=== PATIENT | female | born 1960 | race Caucasian/White ===

== ENCOUNTER 2016-09-11 10:52 | Day surgery (SDC) | payer BC ==
[~2016-09-11 10:52] MED LIST: Buffered Lidocaine 0.9% SYRIN* 5 ML/SYR SYRINGE INTRADERM ONE; Buffered Lidocaine 0.9% SYRIN* 5 ML/SYR SYRINGE ONE; Famotidine IV* 10 MG/ML 2 ML (20 mg) IV ONE; Famotidine IV* 10 MG/ML 2 ML (20 mg) ONE
[2016-09-11] MEDS ORDERED: oxyCODONE TAB* 5 MG TAB PO PRN (12:50)
[2016-09-11] MEDS ORDERED: DiMENhydriNATE IV* 50 MG/ML VIAL IV PUSH PRN (12:50)
[2016-09-11] MEDS ORDERED: Acetaminophen TAB* 325 MG PO PRN (12:50)
[2016-09-11] MEDS ORDERED: fentaNYL* 50 MCG/ML 2 ML VIAL (100 MCG VIAL) ONE (13:50)
[2016-09-11] MEDS ORDERED: Midazolam* 1 MG/ML 5 ML VIAL (5 MG) ONE (13:51)
[2016-09-11] MEDS ORDERED: Propofol* 10 MG/ML 20 ML BTL IV PUSH ONE ×2 (13:51→15:17)
[2016-09-11] MEDS ORDERED: Ondansetron INJ* 2 MG/ML VIAL ONE (13:51)
[2016-09-11] MEDS ORDERED: Lidocaine 2% PF * 5 ML VIAL ONE (13:51)
[2016-09-11 16:32] VITALS: BP 111/64
--- NOTE | 2016-09-12 13:52 | PRO ---
CC: Dr. Cardenas * DATE OF PROCEDURE: 09/11/16 [facility] PROCEDURE: Colonoscopy. MEDICINES: IV propofol administered by Anesthesiology. NARRATIVE: Ms. Soria is a 56-year-old woman presenting for a followup colonoscopy. Approximately 5 to 6 years ago, she had a colonoscopy where a dysplastic polyp was removed. She is now here for followup and she is asymptomatic. She did have a very difficult colonoscopy previously that was painful. For that reason, this is being performed with IV propofol. DESCRIPTION OF PROCEDURE: The procedure was discussed with the patient. Risks and benefits were outlined and written consent was obtained. The patient was placed in the left lateral decubitus position and a rectal exam was performed. The rectal exam was normal without any palpable abnormality. At that point, a video adult flexible colonoscope was inserted anally and advanced to the distal sigmoid colon at which time, a sharp angulation was encountered which prevented further advancement of this instrument. This instrument, therefore, was removed and replaced with a pediatric colonoscope. This was successful at traversing the sigmoid colon and proceeding up into the cecum. The cecum was identified by the appendiceal orifice and the ileocecal valve. The terminal ileum was briefly intubated. The quality of the preparation was very good. The patient tolerated the procedure well and there were no immediate complications. FINDINGS: Colonoscopy into the distal terminal ileum was performed. The ileum was inspected for about 10 cm and was normal. The colon was thereafter very carefully inspected. Moderate sigmoid diverticulosis was noted. However, no other abnormality was detected, there was no evidence of polyp. The submucosal vascular pattern was normal. The rectum was viewed both in the forward view and retroflex manner and was normal. CONCLUSION: Sigmoid diverticulosis, otherwise normal colonoscopy into the terminal ileum. RECOMMENDATION: Given the patient's prior history of a dysplastic polyp, I would recommend a followup colonoscopy in 5 years. Thank you very much, Dr. Cardenas, for referring this kind woman to me. [id number]/[facility] #: [id number] [facility]
== END 2016-09-11 16:34 | disposition home or self-care (01) ==
LOC: OR 10:52
PROVIDERS: ATTEND Internal Medicine Gastroenterology
DX: Z12.11 Encounter for screening for malignant neoplasm of colon (principal); Z86.010 Personal history of colon polyps; K57.30 Diverticulosis of large intestine without perforation or abscess without bleeding; L40.50 Arthropathic psoriasis, unspecified
CPT/HCPCS: J2250; J2405; J2704; J3010